=== PATIENT | female | born 1985 | race Caucasian/White ===

== ENCOUNTER 2019-08-22 13:18 | Emergency (ER) | payer OTHER ==
[~2019-08-22] VITALS: Ht 160 cm; Wt 72.6 kg
[2019-08-22 13:21] VITALS: BP 126/78
[2019-08-22] MEDS ORDERED: KEFLEX500 M2 PO (14:22)
== END 2019-08-22 14:40 | disposition home or self-care (01) ==
LOC: ER 13:18
DX: S61.213A Laceration without foreign body of left middle finger without damage to nail, initial encounter (principal); W26.0XXA Contact with knife, initial encounter; Y93.89 Activity, other specified; Y92.89 Other specified places as the place of occurrence of the external cause; Y99.0 Civilian activity done for income or pay